=== PATIENT | male | born 1945 | race Caucasian/White ===

== ENCOUNTER 2021-10-30 22:26 | Observation (INO) | payer MEDICARE, BC ==
[~2021-10-30] VITALS: Ht 177.8 cm; Wt 136.2 kg
[2021-10-31] VITALS (11 sets, daily range): BP systolic 142–185; BP diastolic 46–87; PULSE 49–80; TEMP 97.3–98.7
[2021-10-31] MEDS ORDERED: JANUVIA 100MG100 MG PO (00:32)
[2021-10-31] MEDS ORDERED: DIOVAN 160MG160 MG PO (00:32)
[2021-10-31] MEDS ORDERED: CATAPRES 0.1MG0.1 MG PO (00:32)
[2021-10-31] MEDS ORDERED: SINGULAIR 110 MG/TAB PO (00:33)
[2021-10-31] MEDS ORDERED: SYNTHROID 0.0.025 MG PO (00:33)
[2021-10-31] MEDS ORDERED: RT ADVAIR 228 DISKUS IH (00:34)
[2021-10-31] MEDS ORDERED: PROSCAR 5MG5 MG PO (00:34)
[2021-10-31] MEDS ORDERED: EYE MULTIVITAM1 EAC1 PO (00:35)
[2021-10-31] MEDS ORDERED: MELATONIN5 M1 SL (00:36)
[2021-10-31] MEDS ORDERED: IBU800 M1 PO (00:37)
[2021-10-31] MEDS ORDERED: TYLENOL 325MG325 MG PO (00:38)
[2021-10-31 00:54] LABS: BASO # 0.1 K/mm3 (0.0-0.2); BASO % 0.3 % (0.0-2.0); EOS # 0.1 K/mm3 (0.0-0.7); EOS % 0.6 % (0.0-4.0); GRAN # 12.5 K/mm3 (1.4-6.5); GRAN % 86.5 % (42.2-75.2); HEMATOCRIT 43.4 % (42.0-52.0); HEMOGLOBIN 14.6 g/dl (13.5-18.0); LYMPH # 0.6 K/mm3 (1.2-3.4); LYMPH % 4.2 % (20.0-51.0); MEAN CELL VOLUME 92 fl (80.0-100.0); MEAN CORPUSCULAR HEMOGLOBIN 31 pg (27-31); MEAN CORPUSCULAR HGB CONC 34 g/dl (33.0-37.0); MEAN PLATELET VOLUME 9.7 fl (7.4-10.4); MONO # 1.1 K/mm3 (0.1-0.6); MONO % 7.6 % (1.7-9.3); PLATELET COUNT 213 K/mm3 (130-400); REDCELL DISTRIBUTION WIDTH-CV 13.1 % (11.5-14.5)
[2021-10-31 01:18] LABS: CALCIUM 9.2 mg/dL (8.4-10.2); CREATININE, serum 1.88 mg/dL (0.72-1.25); POTASSIUM 4.3 mmol/L (3.5-4.5)
--- NOTE | 2021-10-31 01:30 | NUR ---
pt admitted to room 343 from ED per WC, able to ambulate with SBA to bed, INT in place to RAC. pt having difficulty with urination, unable to produce full stream, currently incontinent, reporting pain 6/10 after fentanyl given in ED, Dr Cabrera examined pt in ED and attempted manipulation with instruments. unable to place madrigal cath. pt oriented to room, floor and POC. placed on hospital CPAP, pt unable to bring his from home.
--- NOTE | 2021-10-31 05:06 | NUR ---
morphine given x1 for pain, pt able to rest afterwards, currently on CPAP. has urinated at a slow trickle since arrival to floor, incontinence pads changed as needed. NPO for OR later today.
--- NOTE | 2021-10-31 08:00 | NUR ---
PATIENT IS A&O. VSS. REPORT MILD TO MOD DISCOMFORT AT TIMES IN HIS BLADDER DUE TO URINARY RETENSION ISSUES. PATIENT IS SCHEDULED TO GO TO THE OR THIS AM. CONSENT OBTAINED AND ON CHART. PATIENT CHANGED HIS MIND ABOUT NEEDING PAIN MEDS WHEN HE WAS ABLE TO RELEAVE HIS BLADDER. PATIENT INCONTINENT OF URINE AND WAS SOAKED. CHANGED LINENS. RIGHT AC IV TO INT. NPO FOR SURGERY. NO C/O N/V. HEAD TO TOE ASSESSMENT COMPLETE. NO OTHER NEEDS AT THIS TIME. PATIENT RESTING WITH CALL LIGHT IN REACH.
--- NOTE | 2021-10-31 09:35 | NUR ---
PATIENT GOING DOWN TO SURGERY EARLIER THAN EXPECTED. CONSENT ON CHART. OR TEAM TAKING PATIENT OFF FLOOR.
--- NOTE | 2021-10-31 11:44 | NUR ---
SW informed that patient was in surgery. SW will attempt at another time to complete intake. If unable to complete intake on this day, information will be passed on to next SW. SW will continue to follow.
--- NOTE | 2021-10-31 12:30 | NUR ---
PATIENT BACK IN ROOM 343 POST OP. ORIENTED BUT DROWSY. NOTED ELEVATED B/P IN THE 150-160'S SYSTOLIC. GAVE HOME MEDS PER ORDERS. PATIENT NOW ON TELE WITH HR IN 70'S. 02 @ 3L PER NC WITH SATS IN LOW 90'S. PATIENT WEARS C-PAP AT HS. NO C/O N/V. REPORTS SOME PRESSURE IN BLADDER BUT DENIES PAIN. [place] TO DD WITH MOD AMOUNTS OF BLOODY URINE. IV FLUIDS INFUSING VIA GRAVITY. IS ON HER WAY HERE. PATIENT TIRED. ROOM LIGHTS TURNED DOWN. CALL LIGHT IN REACH.
[2021-10-31] MEDS ORDERED: MACROBID 1100 MG/CAP PO (13:44)
[2021-10-31] MEDS ORDERED: PERCOCET 325 MG1 TA2 PO (13:45)
--- NOTE | 2021-10-31 14:45 | NUR ---
PATIENT EXPRESSING SOME CONCERN ABOUT DISCHARGING HOME TO SOON. NOTIFIED PROVIDER OF PATIENT'S CONCERN, AWAITING TO HEAR BACK. IS STILL NOT HERE
--- NOTE | 2021-10-31 17:50 | NUR ---
IS NOW HERE AND AT BEDSIDE. PATIENT AND GIVEN CATH CARE INSTRUCTIONS AND EDUCATION OF BED/LEG BAG TEACHING. PATIENT AND VERBALIZED INSTRUCTIONS. GAVE DISCHARGE INSTRUCTIONS, E-SCRIPTS SENT, AND TO CALL PATIENT AT HOME TO SEE HOW HE IS DOING TOMORROW. ANSWERED QUESTIONS/CONERNS. DC'D RIGHT AC IV AND COVERED SITE WITH GAUZE & COBAN. TELE DC'D. PATIENT GOING TO TRY AND HAVE BM BEFORE GETTING DRESSED. PATIENT WILL CALL WHEN READY TO BE ESCORTED OUT.
--- NOTE | 2021-10-31 18:30 | NUR ---
PATIENT DISCHARGING VIA WC TO PERSONAL VEHICLE WITH . PATIENT GONE
== END 2021-10-31 18:30 | disposition home or self-care (01) ==
LOC: COL.ER 22:26 → SURG 23:35
PROVIDERS: ADMIT Urology
DX: R33.9 Retention of urine, unspecified (principal); N47.1 Phimosis; N48.0 Leukoplakia of penis; Q55.64 Hidden penis; N35.811 Other urethral stricture, male, meatal; G47.33 Obstructive sleep apnea (adult) (pediatric); I10 Essential (primary) hypertension
CPT/HCPCS: C1769; C1894; G0378; J0690; J1100; J1170; J2270; J2405; J2704; J3010; J7120

== ENCOUNTER 2021-12-29 10:15 | Day surgery (SDC) | payer MEDICARE, BC ==
[2021-12-29] VITALS (14 sets, daily range): BP systolic 135–174; BP diastolic 65–105; PULSE 56–74; TEMP 97.7–98
[~2021-12-29] VITALS: Ht 177.8 cm; Wt 136.0 kg
[~2021-12-29 10:15] MED LIST: CATAPRES 0.1MG0.1 MG PO; DIOVAN 160MG160 MG PO; EYE MULTIVITAM1 EAC1 PO; IBU800 M1 PO; JANUVIA 100MG100 MG PO; LEVAQUIN 5500 MG/TA1 PO; MACROBID 1100 MG/CAP PO; MELATONIN5 M1 SL; PERCOCET 325 MG1 TA2 PO; PROSCAR 5MG5 MG PO; RT ADVAIR 228 DISKUS IH; SINGULAIR 110 MG/TAB PO; SYNTHROID 0.0.025 MG PO; TYLENOL 325MG325 MG PO; WELCHOL 625MG625 MG PO
--- NOTE | 2021-12-29 10:45 | NUR ---
Initial visit; Patient and his thanked Stamp Maker for offering comfort and prayer prior to his surgical procedure. Stamp Maker well acquainted with the couple and wished Elby a rapid and thorough recovery.
[2021-12-29 10:53] LABS: BASO # 0.1 K/mm3 (0.0-0.2); BASO % 0.6 % (0.0-2.0); EOS # 0.6 K/mm3 (0.0-0.7); EOS % 7.1 % (0.0-4.0); GRAN # 5.7 K/mm3 (1.4-6.5); GRAN % 70.2 % (42.2-75.2); LYMPH % 12.1 % (20.0-51.0); MEAN CELL VOLUME 93 fl (80.0-100.0); MEAN CORPUSCULAR HEMOGLOBIN 31 pg (27-31); MEAN CORPUSCULAR HGB CONC 33 g/dl (33.0-37.0); MEAN PLATELET VOLUME 9.5 fl (7.4-10.4); MONO # 0.7 K/mm3 (0.1-0.6); MONO % 8.8 % (1.7-9.3); PLATELET COUNT 215 K/mm3 (130-400); RED BLOOD COUNT 4.51 M/mm3 (4.20-5.60); REDCELL DISTRIBUTION WIDTH-CV 12.7 % (11.5-14.5)
[2021-12-29 11:01] LABS: INR 1.1 (0.8-3.0); PROTHROMBIN TIME 12.6 SECONDS (9.7-12.8)
[2021-12-29] MEDS ORDERED: MELATONIN5 M1 SL (11:15)
[2021-12-29] MEDS ORDERED: MULTI VITAMINS1 TAB PO (11:16)
[2021-12-29] MEDS ORDERED: ADVIL200 MG PO (11:16)
[2021-12-29] MEDS ORDERED: IMODIUM 2MG CAPS2 MG PO (11:17)
[2021-12-29] MEDS ORDERED: ALIGN PO (11:18)
[2021-12-29] MEDS ORDERED: NITROSTAT0.4 MG/TAB SL (11:19)
[2021-12-29] MEDS ORDERED: K-DUR20 MEQ PO (11:20)
[2021-12-29] MEDS ORDERED: PRESERVISION1 SGL PO (11:20)
[2021-12-29] MEDS ORDERED: JANUVIA 100MG100 MG PO (11:21)
[2021-12-29] MEDS ORDERED: ASPIRIN 81M81 MG/TA2 PO (11:22)
[2021-12-29] MEDS ORDERED: TYLENOL 325MG325 MG PO (11:22)
[2021-12-29] MEDS ORDERED: PHARMASSURE ZIN50 MG PO (11:22)
[2021-12-29] MEDS ORDERED: SYNTHROID 0.0.025 MG PO (11:23)
[2021-12-29] MEDS ORDERED: PROSCAR 5MG5 MG PO (11:23)
[2021-12-29] MEDS ORDERED: RT ADVAIR 228 DISKUS IH (11:24)
[2021-12-29 11:42] LABS: CREATININE, serum 1.21 mg/dL (0.72-1.25); POTASSIUM 4.4 mmol/L (3.5-4.5)
--- NOTE | 2021-12-29 12:00 | NUR ---
SEE MERGE FOR VITAL SIGNS, ASSESSMENT, INTERVENTIONS AND MEDICATIONS GIVEN.
--- NOTE | 2021-12-29 18:27 | NUR ---
PT ALERT AND ORIENTED WATCHING TV. PT L ARM SLING ON AND PROCEDURE SITE ICED. PT REPORTS TOLERABLE DISCOMFORT. PT PACEMAKER INSERTION SITE FREE OF EDEMA OR HEMATOMA AT THE MOMENT. CALL LIGHT WITHIN REACH. NO FURTHER NEEDS IDENTIFIED.
--- NOTE | 2021-12-29 19:33 | NUR ---
PT RESTING IN BED COMFORTABLY. ICE PACK ON LEFT SHOULDER. PT WATCHING TV PRIOR TO TREATMENT AND AFTERWARDS. ABLE TO ANSWER QUESTIONS APPROPRIATELY. NO SIGNS OF DISTRESS. NO NOTED CONCERNS. CALL LIGHT WITHIN REACH
--- NOTE | 2021-12-29 20:30 | NUR ---
Initial shift assessment done, alert/oriented x4, chest dressing dry and intact- ice to site, has left shoulder sling on, tele on, Verdin to DD with clear yellow urine. States just slight soreness to pacemaker site- will give tylenol as ordered.
[2021-12-30 01:05] VITALS: BP 158/81; PULSE 71; TEMP 97.8
[2021-12-30 05:38] VITALS: BP 172/78; PULSE 65; TEMP 98.6
--- NOTE | 2021-12-30 06:02 | NUR ---
Quiet night- Dressing dry and intact to left chest- Tele on-
[2021-12-30 07:10] VITALS: BP 158/72; PULSE 65; TEMP 97.7
[2021-12-30 08:59] VITALS: BP 158/72
--- NOTE | 2021-12-30 09:00 | NUR ---
Radiology notified of need for chest x ray order per cards.
--- NOTE | 2021-12-30 09:13 | NUR ---
Follow-up visit; Patient doing ok and talkative as always. 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
[2021-12-30 11:34] VITALS: BP 157/93; PULSE 66; TEMP 98
[2021-12-30 12:04] VITALS: BP 157/93
--- NOTE | 2021-12-30 16:00 | NUR ---
PATIENT DEPARTED VIA WHEELCHAIR WITH STATISTICAL SECRETARY. RECEIVED DISCHARGE PAPERWORK. ACKNOWLEDGED UNDERSTANDING.
== END 2021-12-30 16:18 | disposition home or self-care (01) ==
LOC: COL.CAR 10:15 → MEDICAL 14:16 → COL.CAR 12-30 16:18
PROVIDERS: Internal Medicine Cardiovascular Disease
DX: R42 Dizziness and giddiness (principal); R00.1 Bradycardia, unspecified; I44.1 Atrioventricular block, second degree; E11.9 Type 2 diabetes mellitus without complications; E78.2 Mixed hyperlipidemia; G47.33 Obstructive sleep apnea (adult) (pediatric); I10 Essential (primary) hypertension; E66.01 Morbid (severe) obesity due to excess calories; I25.10 Atherosclerotic heart disease of native coronary artery without angina pectoris; Z68.41 Body mass index [BMI] 40.0-44.9, adult; Z85.038 Personal history of other malignant neoplasm of large intestine; Z79.84 Long term (current) use of oral hypoglycemic drugs; Z79.899 Other long term (current) drug therapy; Z95.5 Presence of coronary angioplasty implant and graft
CPT/HCPCS: OP; C1785; C1898; J2250; J3010; J3370; J7030; J7050; Q9967